=== PATIENT | male | born 1990 | race Caucasian/White ===

== ENCOUNTER 2016-12-12 16:14 | Emergency (ER) | payer BC, OTHER ==
[~2016-12-12] VITALS: Ht 167.6 cm; Wt 81.0 kg
[2016-12-12 16:21] VITALS: Ht 167.6 cm; Wt 81.0 kg
[2016-12-12] MEDS ORDERED: AMO500 PO (17:03)
--- NOTE | 2016-12-12 17:06 | ERD ---
ER Documentation Chief Complaint Date/Time DATE: 12/12/16 TIME: 17:04 Chief Complaint sore throat, fever, cough; x month HPI This is a 26-year-old male who presents complaining of 2 weeks of sore throat as well as dry cough at night and bilateral ear pain. He is tolerating oral intake. He states he has had a fever on and off. Denies any nausea vomiting or diarrhea. Denies any bleeding or drainage from his ear. Denies any trauma. He was taking NyQuil at home but states it made him too drowsy in the morning so he stopped taking it and he is not taking any other medications. ROS All systems reviewed and are negative except as per history of present illness. Medications Home Meds Active Scripts Amoxicillin* (Amoxicillin*) 500 Mg Cap, 500 MG PO BID for 7 Days, CAP Prov:TRIPP CERVANTES PA-C 12/12/16 Allergies Allergies: Coded Allergies: No Known Allergy (Unverified , 12/12/16) PMhx/Soc Medical and Surgical Hx: pt denies Medical Hx, pt denies Surgical Hx Hx Alcohol Use: No Hx Substance Use: No Hx Tobacco Use: No FmHx Family History: No diabetes Physical Exam Vitals Vital Signs Date Time Temp Pulse Resp B/P Pulse Ox O2 Delivery O2 Flow Rate FiO2 12/12/16 16:21 99.3 86 18 128/69 96 Physical Exam General: well developed, well nourished, alert, nontoxic, no distress Head: normocephalic, atraumatic Eyes: PERRL, normal conjunctiva Neck: Supple, nontender, no lymphadenopathy, no midline tenderness Ears: no tenderness over mastoids bilaterally, right tympanic membrane erythematous no exudates in canal, left ear with unable to be visualized secondary to cerumen impaction Oropharynx: Bilateral tonsilar erythema with 1+ edema, uvula midline, no exudates, no kissing tonsils, no drooling Respiratory: Clear to auscaultation bilaterally, speaks in full sentences, no use of accesory muscles or labored breathing, no rales, ronchi, or wheezing Cardiovascular: RRR, No murmurs GI: soft, non tender, non distended, negative murphys sign, Procedures/MDM 26-year-old male presents with evidence of pharyngitis and otitis media. He is afebrile and otherwise well-appearing. He is tolerating oral intake. He has tried [id number] medication without relief. He was discharged tonight with amoxicillin. Recommended this patient follow up with her primary care doctor within 48 hours or return to the emergency room for any worsening of symptoms. However this time I do believe there is suitable for outpatient management. I answered all their questions and they agreed with the plan and were discharged home. Departure Diagnosis: Primary Impression: Pharyngitis Additional Impression: Otitis media Condition: Stable Patient Instructions: Otitis Media, Abx Tx (Adult), Pharyngitis, Strep ( Presumed) Additional Instructions: Call your primary care doctor TOMORROW for an appointment during the next 1-2 days.See the doctor sooner or return here if your condition worsens before your appointment time. TRIPP CERVANTES PA-C Dec 12, 2016 17:06
== END 2016-12-12 17:08 | disposition home or self-care (01) ==
LOC: FTE 16:14
DX: J02.9 Acute pharyngitis, unspecified (principal); H66.91 Otitis media, unspecified, right ear
CPT/HCPCS: 99283

== ENCOUNTER 2017-12-24 05:42 | Emergency (ER) | END 2017-12-24 08:08 | disposition home or self-care (01) ==

== ENCOUNTER 2018-06-04 20:27 | Emergency (ER) | END 2018-06-04 22:45 | disposition home or self-care (01) ==